=== PATIENT | female | born 1990 | race Caucasian/White ===

== ENCOUNTER 2021-06-19 09:48 | Emergency (ER) | payer SELFPAY ==
[2021-06-19] MEDS ORDERED: BACTRIM DS TAB1 EACH PO (11:45)
== END 2021-06-19 11:56 | disposition home or self-care (01) ==
LOC: FER 09:48
DX: S61.213A Laceration without foreign body of left middle finger without damage to nail, initial encounter (principal); Z23 Encounter for immunization; Z91.041 Radiographic dye allergy status; W26.0XXA Contact with knife, initial encounter; Y92.009 Unspecified place in unspecified non-institutional (private) residence as the place of occurrence of the external cause
CPT/HCPCS: 90471; 90715